=== PATIENT | female | born 1975 | race Hispanic/Latino ===

== ENCOUNTER 2021-06-18 12:12 | Emergency (ER) | payer MEDICARE ==
[~2021-06-18] VITALS: Ht 162.6 cm; Wt 84.4 kg
[2021-06-18] MEDS ORDERED: DICL35CA3 PO (16:23)
[2021-06-18] MEDS ORDERED: CYCL10TA16 PO (16:24)
[2021-06-18 16:30] VITALS: BP 143/91
== END 2021-06-18 16:37 | disposition home or self-care (01) ==
LOC: EDH 12:12
DX: M54.9 Dorsalgia, unspecified (principal); E11.9 Type 2 diabetes mellitus without complications; E78.00 Pure hypercholesterolemia, unspecified; I10 Essential (primary) hypertension; Z79.899 Other long term (current) drug therapy
CPT/HCPCS: 93005